=== PATIENT | female | born 1950 | race Caucasian/White ===

== ENCOUNTER 2017-04-23 10:07 | Outpatient (CLI) | payer MEDICARE ==
--- NOTE | 2017-04-23 12:17 | CT ---
POSTCONTRAST SOFT TISSUE NECK CT: Date: 04/23/17 COMPARISON: 10/21/14, 05/06/14. TECHNIQUE: Postcontrast soft tissue neck CT is performed in the axial plane. Reformatted images are submitted fo r interpretation. FINDINGS: Adequate aeration of the visualized paranasal sinuses and mastoid air cells. Visualized brain parenchyma is unremarkable. Bilateral ocular lenses are appropriately located. Both globes are intact. Retrobulbar fat is preserv ed. Aerodigestive tract is patent. Limited evaluation of the oral cavity due to dental amalgam artifact. There is mild asymmetric fullness of the posterior right oral cavity/oropharynx at the level of the t ongue base and uvula. Midline fatty raphe of the tongue appears to be preserved. Floor of the mouth i s unremarkable. Epiglottis has a normal caliber. Preepiglottic fat is preserved. No prevertebral soft tissue swelling . The supraglottic, glottic, and subglottic larynx are unremarkable. Symmetric attenuation of the sternocleidomastoid muscles. Symmetric attenuation of the parotid and moreau bmandibular glands. Thyroid gland is unremarkable. Grossly, the great vessels of the neck are patent. Varying degrees of central canal stenosis and foraminal narrowing on the basis of degenerative change . Cervical spine vertebral body height is maintained. No fracture. 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 There is minimal stranding of the fat in the right carotid space, presumed to be ia trogenic. No evidence of lymphadenopathy by size criteria. Upper mediastinum is unremarkable. Peripheral chronic changes in the lung apices. IMPRESSION: 1. No CT evidence of recurrent tumor, at the level of the previous right neck hypodense mass. No ramón dence of lymphadenopathy. 2. Stranding of the right carotid space fat compatible with post treatment change. 3. Mild asymmetric prominence of the mucosa involving the posterior right oral cavity as detailed ab ove. Mucosal based pathology cannot be excluded. Results of study discussed with Dr. Chase on 04/23/17 at 1203 hours. CODE CR. POS: [facility]
[2017-04-23] MEDS ORDERED: Iopamidol 370 76% 100 ML VIAL ONE (16:54)
== END 2017-04-23 10:08 | disposition home or self-care (01) ==
LOC: CT 10:07
PROVIDERS: ATTEND Otolaryngology Plastic Surgery within the Head & Neck
DX: D37.05 Neoplasm of uncertain behavior of pharynx (principal); Z85.818 Personal history of malignant neoplasm of other sites of lip, oral cavity, and pharynx
CPT/HCPCS: 70491